=== PATIENT | female | born 1995 | race African-American/Black ===

== ENCOUNTER 2017-05-15 09:54 | Emergency (ER) | payer MEDICAID ==
[~2017-05-15] VITALS: Ht 172.7 cm; Wt 84.0 kg
[2017-05-15] MEDS ORDERED: KETOROLAC 60MG/2ML VIAL IM ONE (11:45)
[2017-05-15 14:20] VITALS: BP 104/76
== END 2017-05-15 14:21 | disposition home or self-care (01) ==
LOC: ER 12:28
DX: S93.401A Sprain of unspecified ligament of right ankle, initial encounter (principal); Y93.01 Activity, walking, marching and hiking; Y92.89 Other specified places as the place of occurrence of the external cause; R03.0 Elevated blood-pressure reading, without diagnosis of hypertension
CPT/HCPCS: 73610; 81025; 96372; 99284; J1885

== ENCOUNTER 2019-06-07 17:56 | Emergency (ER) | payer BC, MEDICAID ==
[~2019-06-07] VITALS: Ht 172.7 cm; Wt 87.0 kg
[2019-06-07 18:52] VITALS: BP 168/99
== END 2019-06-07 20:37 | disposition home or self-care (01) ==
LOC: ER 17:56
DX: F32.9 Major depressive disorder, single episode, unspecified (principal); F41.9 Anxiety disorder, unspecified
CPT/HCPCS: 99284